=== PATIENT | female | born 1940 | race Caucasian/White ===

== ENCOUNTER 2016-12-09 08:41 | Emergency (ER) | payer OTHER, BC ==
[~2016-12-09] VITALS: Ht 157.5 cm; Wt 91.8 kg
[~2016-12-09 08:41] MED LIST: ALEVE220 MG PO; ASPIRIN EC325 MG PO; CENTRUM SILVER1 EAC3 PO; CO Q-10200 MG PO; COQ-10100 MG PO; Colace PO; EFFIENT10 MG PO; ENDOCET 5-3251 EACH PO; FISH OIL300 MG PO; LISINOPRIL5 MG PO; LIVALO4 MG PO; LOW DOSE ASPIRI81 M2 PO; Levothroid,Synthroid PO; Livalo PO; METOPROLOL SUCC25 MG PO; METOPROLOL SUCC50 MG PO; OMEGA 3 1,0001 EACH PO; OXYBUTYNIN CHLO15 MG PO; PRAVACHOL20 MG PO; PRAVASTATIN SOD20 MG PO; PREVACID30 MG PO; Percocet 5/325,Endoc PO; Pravachol PO; SYNTHROID125 MCG PO; VESICARE10 MG PO; WELCHOL3.75 GM PO; ZOLOFT100 MG PO
[2016-12-09] MEDS ORDERED: VESICARE10 MG PO (09:57)
[2016-12-09] MEDS ORDERED: AMLODIPINE BESYL5 MG PO (09:58)
[2016-12-09] MEDS ORDERED: LIDODERM 5% P1 PATCH TD (10:10)
[2016-12-09] MEDS ORDERED: MEDROL DOSEPAK4 MG PO (10:10)
[2016-12-09] MEDS ORDERED: NAPROXEN500 MG PO (10:10)
[2016-12-09 10:26] VITALS: BP 177/70
== END 2016-12-09 10:41 | disposition home or self-care (01) ==
LOC: EME 08:41
DX: M54.41 Lumbago with sciatica, right side (principal); M54.42 Lumbago with sciatica, left side; M51.26 Other intervertebral disc displacement, lumbar region; I10 Essential (primary) hypertension; E03.9 Hypothyroidism, unspecified; Z95.1 Presence of aortocoronary bypass graft; Z79.82 Long term (current) use of aspirin
CPT/HCPCS: 99281; 99284; J1885; J3010; J7512

== ENCOUNTER 2017-02-16 05:08 | Day surgery (SDC) | payer OTHER, BC ==
[~2017-02-16] VITALS: Ht 157.5 cm; Wt 89.8 kg
[~2017-02-16 05:08] MED LIST changes: +AMLODIPINE BESYL5 MG PO; +ASPIR 8181 M1 PO; +FISH OIL 1,0001 EAC7 PO; +HYDROCODON-ACE1 EAC8 PO; +LIDODERM 5% P1 PATCH TD; +MEDROL DOSEPAK4 MG PO; +NAPROXEN500 MG PO; +STOOL SOFTENER100 MG PO; +TOPROL XL25 MG PO; +VESICARE5 MG PO
[2017-02-16 05:50] VITALS: BP 184/94
[2017-02-16 05:56] VITALS: BP 184/94
[2017-02-16 07:36] LABS: ANION GAP 9 MEQ/L (2-14); CHLORIDE 108 MEQ/L (99-109); GFR ESTIMATE (CALCULATED) > 59 mL/min/; GLUCOSE 131 mg/dL (70-99); POTASSIUM 3.8 MEQ/L (3.7-5.4); SAMPLE HEMOLYSIS CHECK 0; SAMPLE ICTERIC CHECK 0; SAMPLE LIPEMIA CHECK 0; SODIUM 144 MEQ/L (136-147); UREA NITROGEN (BUN) 20 mg/dL (9-23)
[2017-02-16] MEDS ORDERED: ENDOCET 5-3251 EACH PO (10:20)
[2017-02-16] MEDS ORDERED: DOCUSATE SODIU100 MG PO (10:20)
[2017-02-16] MEDS ORDERED: DIAZEPAM10 MG PO (10:20)
[2017-02-16 13:00] VITALS: BP 146/70
[2017-02-16 14:00] VITALS: BP 143/75
[2017-02-16 14:56] VITALS: BP 135/67
== END 2017-02-16 15:00 | disposition home or self-care (01) ==
LOC: SDC 05:08
PROVIDERS: Anesthesiology
PROC: 0SB20ZZ Excision of Lumbar Vertebral Disc, Open Approach (ICD-10-PCS; principal; 2017-02-16)
DX: M51.26 Other intervertebral disc displacement, lumbar region (principal); M48.061 Spinal stenosis, lumbar region without neurogenic claudication; Z98.1 Arthrodesis status; I25.10 Atherosclerotic heart disease of native coronary artery without angina pectoris; Z95.1 Presence of aortocoronary bypass graft; G47.30 Sleep apnea, unspecified; R73.03 Prediabetes; E03.9 Hypothyroidism, unspecified; E78.5 Hyperlipidemia, unspecified; Z79.82 Long term (current) use of aspirin; Z90.49 Acquired absence of other specified parts of digestive tract; Z90.710 Acquired absence of both cervix and uterus
CPT/HCPCS: 72020; 76000; 80048; J0131; J0330; J1100; J1170; J1885; J2250; J2405; J2710; J3010

== ENCOUNTER 2017-02-25 06:55 | Emergency (ER) | payer OTHER, BC ==
[~2017-02-25] VITALS: Ht 177.8 cm; Wt 93.1 kg
[~2017-02-25 06:55] MED LIST changes: +DIAZEPAM10 MG PO; +DOCUSATE SODIU100 MG PO
[2017-02-25 08:06] LABS: ADD MIUA? NO; BILIRUBIN NEGATIVE; BLOOD NEGATIVE; COLOR STRAW ((YELLOW)); GLUCOSE (STRIP) NEGATIVE; KETONES NEGATIVE; LEUKOCYTES NEGATIVE; NITRITE NEGATIVE; PROTEIN (STRIP) NEGATIVE; SPECIFIC GRAVITY 1.011 (1.000-1.030); UCUL ADDED? NO; UROBILINOGEN 0.2 MG/DL (0.2-1.0)
[2017-02-25] MEDS ORDERED: MEDROL DOSEPAK4 MG PO (09:38)
[2017-02-25 09:53] VITALS: BP 169/87
== END 2017-02-25 10:01 | disposition home or self-care (01) ==
LOC: EME 06:55
PROVIDERS: Emergency Medicine
DX: M54.5 Low back pain (principal); G89.18 Other acute postprocedural pain; F32.9 Major depressive disorder, single episode, unspecified; F41.9 Anxiety disorder, unspecified; Z95.1 Presence of aortocoronary bypass graft; Z88.1 Allergy status to other antibiotic agents
CPT/HCPCS: 72131; 81003; 99281; 99285; J1885; J3010

== ENCOUNTER 2017-03-11 11:39 | Inpatient (IN) | payer OTHER, BC ==
[~2017-03-11] VITALS: Ht 157.5 cm; Wt 89.4 kg
[~2017-03-11 11:39] MED LIST changes: +GABAPENTIN300 MG PO; +NORVASC5 MG PO; +OXYCODONE-APAP1 EAC6 PO; +TIZANIDINE HCL4 MG PO; +VALIUM10 MG PO; -VESICARE5 MG PO
[2017-03-11 13:20] VITALS: BP 159/84
[2017-03-11] MEDS ORDERED: ATIVAN0.5 MG PO (14:12)
[2017-03-11] MEDS ORDERED: AMBIEN5 MG PO (14:14)
[2017-03-11] MEDS ORDERED: PERCOCET 5/31 TABLET PO (14:14)
[2017-03-11] MEDS ORDERED: PRAVACHOL80 MG PO (14:15)
[2017-03-11] MEDS ORDERED: DECADRON4 MG/ML 1M IV (14:17)
[2017-03-11] MEDS ORDERED: DITROPAN5 MG PO (14:17)
[2017-03-11] MEDS ORDERED: PROTONIX40 MG PO (14:18)
[2017-03-11] MEDS ORDERED: APRESOLINE20 MG/ML IV (14:19)
[2017-03-11 15:07] VITALS: BP 175/81
[2017-03-11 17:40] VITALS: BP 141/64
[2017-03-11 22:56] VITALS: BP 148/68
[2017-03-12 05:56] VITALS: BP 141/76
[2017-03-12 05:56] LABS: HEMATOCRIT 38.7 % (36.0-46.0); MCH 28.9 PG (29.0-34.0); MCHC 32.3 G/DL (30.0-36.0); MCV 89.6 FL (83-99); MEAN PLAT.VOLUME 9.3 uM^3 (9.5-12.4); PLATELET COUNT 222 K/uL (156-360); RBC DIS.WIDTH-CV 13.4 % (11.8-14.6); RBC DIS.WIDTH-SD 44.1 % (39-53); RED BLOOD COUNT 4.32 M/uL (3.80-5.20); WHITE BLOOD COUNT 8.5 K/uL (4.1-10.2)
[2017-03-12 06:28] LABS: ALKALINE PHOSPHATASE 58 IU/L (3-129); ANION GAP 7 MEQ/L (2-14); CHLORIDE 104 MEQ/L (99-109); GFR ESTIMATE (CALCULATED) > 59 mL/min/; GLUCOSE 146 mg/dL (70-99); POTASSIUM 4.1 MEQ/L (3.7-5.4); SAMPLE HEMOLYSIS CHECK 0; SAMPLE ICTERIC CHECK 0; SAMPLE LIPEMIA CHECK 0; SODIUM 141 MEQ/L (136-147); TOTAL BILIRUBIN 0.4 MG/DL (0.0-1.0); UREA NITROGEN (BUN) 19 mg/dL (9-23)
[2017-03-12 15:26] VITALS: BP 161/62
[2017-03-13 05:04] VITALS: BP 176/80
[2017-03-13 15:02] VITALS: BP 135/63
[2017-03-14 05:35] VITALS: BP 161/77
[2017-03-14] MEDS ORDERED: VESICARE10 MG PO (14:54)
[2017-03-14] MEDS ORDERED: PREVACID30 MG PO (14:54)
[2017-03-14] MEDS ORDERED: LIVALO4 MG PO (14:54)
[2017-03-14] MEDS ORDERED: GABAPENTIN300 MG PO (14:54)
[2017-03-14] MEDS ORDERED: FISH OIL 1,0001 EAC7 PO (14:54)
[2017-03-14] MEDS ORDERED: ZOLOFT100 MG PO (14:54)
[2017-03-14] MEDS ORDERED: NORVASC5 MG PO (14:54)
[2017-03-14] MEDS ORDERED: SYNTHROID125 MCG PO (14:54)
[2017-03-14] MEDS ORDERED: STOOL SOFTENER100 MG PO (14:54)
[2017-03-14] MEDS ORDERED: ASPIR 8181 M1 PO (14:54)
[2017-03-14] MEDS ORDERED: DEXAMETHASONE4 MG PO (14:54)
[2017-03-14] MEDS ORDERED: COQ-10100 MG PO (14:54)
[2017-03-14] MEDS ORDERED: TOPROL XL25 MG PO (14:54)
[2017-03-14] MEDS ORDERED: ENDOCET 5-3251 EACH PO (14:54)
[2017-03-14 15:15] VITALS: BP 143/64; BP 149/68
[2017-03-15 05:45] VITALS: BP 198/94
[2017-03-15 05:47] VITALS: BP 160/84
== END 2017-03-15 14:09 | DRG 949 ==
LOC: 3WEST 11:39 → ENPENDDIS 03-15 → 3WEST 03-15 08:04
PROVIDERS: Psychiatry & Neurology Neurology
PROC: F07M0ZZ Range of Motion and Joint Mobility Treatment of Musculoskeletal System - Whole Body (ICD-10-PCS; principal; 2017-03-11)
DX: Z48.89 Encounter for other specified surgical aftercare (principal); M54.40 Lumbago with sciatica, unspecified side; G97.61 Postprocedural hematoma of a nervous system organ or structure following a nervous system procedure; F33.9 Major depressive disorder, recurrent, unspecified; Z88.2 Allergy status to sulfonamides; Z88.1 Allergy status to other antibiotic agents; G89.18 Other acute postprocedural pain; E03.9 Hypothyroidism, unspecified; I10 Essential (primary) hypertension; I25.10 Atherosclerotic heart disease of native coronary artery without angina pectoris; Z95.1 Presence of aortocoronary bypass graft; K21.9 Gastro-esophageal reflux disease without esophagitis; Z90.49 Acquired absence of other specified parts of digestive tract
CPT/HCPCS: 80053; 85027; 97110 GO; 97530 GP; J1100; J8540